=== PATIENT | female | born 1965 | race Caucasian/White ===

== ENCOUNTER 2017-08-17 17:48 | Emergency (ER) | payer OTHER ==
[2017-08-17 17:57] VITALS: BP 150/78
--- NOTE | 2017-08-17 18:07 | UC ---
Respiratory Complaint HPI - HPI Summary HPI Summary: worsening harsh cough over past 7 days-- - History of Current Complaint Chief Complaint: UCRespiratory Stated Complaint: ASTHMA Time Seen by Provider: 08/17/17 18:01 Hx Obtained From: Patient Hx Last Menstrual Period: 07/22/17 ?: No Onset/Duration: Sudden Onset, Lasting Weeks - 1, Still Present Timing: Constant Severity Initially: Mild Severity Currently: Moderate Character: Cough: Productive Aggravating Factors: Exertion, Deep Breaths, Recumbent Position Alleviating Factors: Bronchodilator, Other - began symbacort-this week when sx started with out effect Associated Signs And Symptoms: Positive: URI - Allergies/Home Medications Allergies/Adverse Reactions: Allergies Allergy/AdvReac Type Severity Reaction Status Date / Time No Known Allergies Allergy Verified 08/17/17 17:57 PMH/Surg Hx/FS Hx/Imm Hx Previously Healthy: No Respiratory History: Asthma - Surgical History Surgical History: Yes Surgery Procedure, Year, and Place: Tonsillectomy, C Section x2. - Family History Known Family History: Positive: Unknown Family History: PT ADOPTED - UNKNOWN FAM HX - Social History Occupation: Employed Full-time Lives: With Family Alcohol Use: Occasionally Substance Use Type: None Smoking Status (MU): Former Smoker Have You Smoked in the Last Year: No - Immunization History Most Recent Influenza Vaccination: fall Most Recent Tetanus Shot: utd Review of Systems Constitutional: Negative Skin: Negative Eyes: Negative ENT: Sinus Congestion Respiratory: Cough Cardiovascular: Negative Gastrointestinal: Negative Genitourinary: Negative Motor: Negative Neurovascular: Negative Musculoskeletal: Negative Neurological: Negative Psychological: Negative Is Patient Immunocompromised?: No All Other Systems Reviewed And Are Negative: Yes Physical Exam Triage Information Reviewed: Yes Appearance: No Pain Distress, Well-Nourished, Ill-Appearing - mild Vital Signs: Initial Vital Signs Temp 99.1 F 08/17/17 17:54 Pulse 90 08/17/17 17:54 Resp 18 08/17/17 17:54 BP 150/78 08/17/17 17:54 Pulse Ox 99 08/17/17 17:54 Vital Signs Reviewed: Yes Eye Exam: Normal Eyes: Positive: Conjunctiva Clear ENT Exam: Normal ENT: Positive: Normal ENT inspection, Hearing grossly normal, Pharynx normal, Nasal congestion, TMs normal, Uvula midline. Negative: Nasal drainage, Trismus , Muffled voice, Hoarse voice, Sinus tenderness Dental Exam: Normal Neck exam: Normal Neck: Positive: Supple, Nontender Respiratory Exam: Normal Respiratory: Positive: Chest non-tender, Normal breath sounds, No respiratory distress, No accessory muscle use, Wheezing Cardiovascular Exam: Normal Cardiovascular: Positive: RRR, No Murmur, Pulses Normal, Brisk Capillary Refill Musculoskeletal Exam: Normal Musculoskeletal: Positive: Strength Intact, ROM Intact, No Edema Neurological Exam: Normal Neurological: Positive: Alert, Muscle Tone Normal Psychological Exam: Normal Skin Exam: Normal UC Diagnostic Evaluation - Laboratory O2 Sat by Pulse Oximetry: 99 Respiratory Course/Dx - Course Course Of Treatment: continue Symbicort, and xeopenex, add prednisone and robitussin with Codiene follow with Dr. Garner - Differential Dx/Diagnosis Provider Diagnoses: Bronchospams, elevated Blood Pressure without dx of HTN Discharge - Discharge Plan Condition: Stable Disposition: HOME Prescriptions: Guaifenesin-Codeine [Cheratussin AC] 5 - 10 syp PO Q6H PRN #120 ml MDD 40ml PRN Reason: Cough predniSONE TAB* [Deltasone TAB*] 20 mg PO DAILY #15 tab Patient Education Materials: Hypertension (ED), Bronchospasm (ED) Referrals: Brenda Garner MD [Primary Care Provider] - 1 Week
== END 2017-08-17 18:23 | disposition home or self-care (01) ==
LOC: UCEAST 17:48
DX: J45.909 Unspecified asthma, uncomplicated (principal); R03.0 Elevated blood-pressure reading, without diagnosis of hypertension
CPT/HCPCS: 99212; G0463

== ENCOUNTER 2018-04-19 10:09 | Emergency (ER) | payer OTHER ==
[2018-04-19 10:47] VITALS: BP 145/92
--- NOTE | 2018-04-19 10:56 | ED ---
Throat Pain/Nasal Congestion - HPI Summary HPI Summary: 52-year-old female presents with sore throat and ear pain for the past 2 weeks. She states her daughter was diagnosis strep yesterday. She states she had a fever 2 days ago. has SOB and cough at baseline as has history of asthma. She states she has not been using her inhaler more frequently. She denies any chest pain. no abdominal pain. Denies any nausea or vomiting. - History of Current Complaint Chief Complaint: UCGeneralIllness Time Seen by Provider: 04/19/18 10:47 - Allergies/Home Medications Allergies/Adverse Reactions: Allergies Allergy/AdvReac Type Severity Reaction Status Date / Time No Known Allergies Allergy Verified 04/19/18 10:39 PMH/Surg Hx/FS Hx/Imm Hx Endocrine/Hematology History: Denies: Hx Diabetes, Hx Thyroid Disease Cardiovascular History: Denies: Hx Congestive Heart Failure, Hx Hypertension, Hx Pacemaker/ICD, Other Cardiovascular Problems/Disorders Respiratory History: Reports: Hx Asthma Denies: Hx Chronic Obstructive Pulmonary Disease (COPD), Other Respiratory Problems/Disorders GI History: Denies: Hx Ulcer - Cancer History Hx Chemotherapy: No Hx Radiation Therapy: No - Surgical History Surgery Procedure, Year, and Place: Tonsillectomy, C Section x2. - Immunization History Date of Tetanus Vaccine: UTD Infectious Disease History: No Infectious Disease History: Denies: Hx Hepatitis, Hx Human Immunodeficiency Virus (HIV), History Other Infectious Disease, Traveled Outside the in Last 30 Days - Family History Known Family History: Positive: Unknown Family History: PT ADOPTED - UNKNOWN FAM HX - Social History Alcohol Use: Occasionally Hx Substance Use: No Substance Use Type: Reports: None Hx Tobacco Use: No Smoking Status (MU): Former Smoker Have You Smoked in the Last Year: No Review of Systems Positive: Fever Positive: Sore Throat, Ear Ache Negative: Chest Pain Positive: Shortness Of Breath - at baseline, Cough - at baseline All Other Systems Reviewed And Are Negative: Yes Physical Exam Triage Information Reviewed: Yes Vital Signs On Initial Exam: Initial Vitals Temp Pulse Resp BP Pulse Ox 98.5 F 93 18 145/92 98 04/19/18 10:41 04/19/18 10:41 04/19/18 10:41 04/19/18 10:41 04/19/18 10:41 Vital Signs Reviewed: Yes Appearance: Positive: Well-Appearing Skin: Positive: Warm, Dry Head/Face: Positive: Normal Head/Face Inspection Eyes: Positive: Normal, EOMI, YEYO, Conjunctiva Clear ENT: Positive: Pharyngeal erythema, Muffled voice, Uvula midline, Other - soft palate symmetric. Negative: Tonsillar swelling, Trismus Neck: Positive: Supple, Tenderness @ - cervical, Enlarged Nodes @ - cervical Respiratory/Lung Sounds: Positive: Breath Sounds Present, Wheezes Cardiovascular: Positive: Normal, RRR Abdomen Description: Positive: Nontender, Soft Bowel Sounds: Positive: Present Musculoskeletal: Positive: Normal Neurological: Positive: Normal Psychiatric: Positive: Normal Diagnostics - Vital Signs Vital Signs Temp Pulse Resp BP Pulse Ox 04/19/18 10:41 98.5 F 93 18 145/92 98 - Laboratory Lab Statement: Any lab studies that have been ordered have been reviewed, and results considered in the medical decision making process. EENT Course/Dx - Course Course Of Treatment: 52-year-old female presents with sore throat and ear pain for the past 2 weeks. She states her daughter was diagnosis strep yesterday. She states she had a fever 2 days ago. has SOB and cough at baseline as has history of asthma. She states she has not been using her inhaler more frequently. She denies any chest pain. no abdominal pain. Denies any nausea or vomiting. on exam pharynx erythematous. uvula midline, soft palate symmetric. lymphadenopathy present. patient declined nebulizer even though has wheezing. strept negative. will have try magic mouth wash and decadron for pain. will have folow up with primary about blood pressure as is elevated at this time. patient understand and agrees with plan. - Differential Diagnoses Differential Diagnoses: Pharyngitis, Sinusitis, Tonsilitis - Diagnoses Provider Diagnoses: Pharyngitis Discharge - Sign-Out/Discharge Documenting (check all that apply): Patient Departure - Discharge Plan Condition: Good Disposition: HOME Prescriptions: Dexamethasone TAB* [Decadron TAB*] 4 mg PO DAILY #5 tab Magic Mouth Was-MURIEL/MAAL/LIDO* 5 ml SWISH SPIT QID #100 ml Patient Education Materials: Pharyngitis (ED) Referrals: Brenda Garner MD [Primary Care Provider] - Additional Instructions: Magic mouthwash 5ml swish and spit can use 4x a day Take steroid once a day for 5 days Take Tylenol or ibuprofen for pain every 6 hours Can use cough drops or products such as cloraseptic spray Follow up with primary within 5 days Return to ED if develop fever does not respond to Tylenol or ibuprofen, inability to swallow, or any new or worsening symptoms - Billing Disposition and Condition Condition: GOOD Disposition: Home Attestation Statement User Type: Provider - I was available for consult. This patient was seen by the DIANA. The patient was not presented to, seen by, or examined by me. -Kenneth
== END 2018-04-19 11:23 | disposition home or self-care (01) ==
LOC: UCEAST 10:09
DX: J02.9 Acute pharyngitis, unspecified (principal); R50.9 Fever, unspecified; H92.09 Otalgia, unspecified ear; R05 Cough; R06.02 Shortness of breath
CPT/HCPCS: 87651; 99212; G0463

== ENCOUNTER 2018-12-04 17:48 | Emergency (ER) | payer OTHER ==
--- NOTE | 2018-12-04 18:06 | UC ---
Skin Complaint HPI - HPI Summary HPI Summary: 53 yo female presents with ?boil to left inner thigh for the last 3 days. She has not been applying any creams or bandaging the area. Pain is worse when touching or rubbing against her other leg when she walks. Denies fever or chills. - History of Current Complaint Time Seen by Provider: 12/04/18 18:06 Stated Complaint: SKIN COMPLAINT Hx Obtained From: Patient Hx Last Menstrual Period: 04/19/18 Onset/Duration: Gradual Onset Timing: Constant Onset Severity: Moderate Current Severity: Moderate Pain Intensity: 7 Pain Scale Used: 0-10 Numeric - Allergy/Home Medications Allergies/Adverse Reactions: Allergies Allergy/AdvReac Type Severity Reaction Status Date / Time No Known Allergies Allergy Verified 12/04/18 18:16 PMH/Surg Hx/FS Hx/Imm Hx Respiratory History: COPD, Asthma - Surgical History Surgical History: Yes Surgery Procedure, Year, and Place: Tonsillectomy, C Section x2. - Family History Known Family History: Positive: Unknown Family History: PT ADOPTED - UNKNOWN FAM HX - Social History Occupation: Employed Full-time Lives: With Family Alcohol Use: Occasionally Substance Use Type: None Smoking Status (MU): Former Smoker Have You Smoked in the Last Year: No - Immunization History Most Recent Influenza Vaccination: fall Most Recent Tetanus Shot: utd Review of Systems All Other Systems Reviewed And Are Negative: Yes Constitutional: Positive: Negative Skin: Positive: Other - ?Boil left inner thigh Respiratory: Positive: Negative Cardiovascular: Positive: Negative Neurovascular: Positive: Negative Neurological: Positive: Negative Psychological: Positive: Negative Physical Exam - Summary Physical Exam Summary: GENERAL: NAD. WDWN. No pain distress. SKIN: LEFT INNER THIGH: 1.5cm area of mild erythema and edema with 5mm scab at central most aspect. No induration, fluctuance, active drainage, or streaking. NECK: Supple. Nontender. No lymphadenopathy. CHEST: No accessory muscle use. Breathing comfortably and in no distress. CV: Pulses intact. Cap refill <2seconds NEURO: Alert. PSYCH: Age appropriate behavior. Triage Information Reviewed: Yes Vital Signs: Vital Signs: Temp Pulse Resp BP Pulse Ox 99.1 F 102 18 159/91 99 12/04/18 18:13 12/04/18 18:13 12/04/18 18:13 12/04/18 18:13 12/04/18 18:13 Vital Signs Reviewed: Yes Procedures - Procedure Summary Procedure Summary: The procedure was explained to the pt and all questions were answered. A time out was performed, witnessed, and signed. The area was cleansed with an alcohol pad. 2mL of 0.25% bupivacaine without epi was administered and good anesthetization was achieved. The area was bandaged with telfa. Pt tolerated procedure well. Course/Dx - Course Course Of Treatment: It appears that the pt did have an abscess here, but that this abscess opened and drained at some point. She is still having pain in the area, but I suspect this is due to constant irritation from rubbing together when she walks. For pain relief I injected the area with 2mL 0.25% bupivacaine. The area was dressed with telfa and tegaderm. Will start her with keflex and bactroban cream. - Diagnoses Provider Diagnosis: Abscess Discharge - Sign-Out/Discharge Documenting (check all that apply): Patient Departure All imaging exams completed and their final reports reviewed: No Studies - Discharge Plan Condition: Stable Disposition: HOME Prescriptions: Cephalexin CAP* [Keflex CAP*] 500 mg PO TID #21 cap Patient Education Materials: Abscess (ED) Referrals: Brenda Garner MD [Primary Care Provider] - Additional Instructions: If you develop a fever, shortness of breath, chest pain, new or worsening symptoms - please call your PCP or go to the ED. Your blood pressure was high at todays visit. Please see your primary provider within 4 weeks for recheck and re-evaluation. 1) Use the bactroban cream and keep the area covered until well healed - change the dressing once a day 2) Take your antibiotic - Billing Disposition and Condition Condition: STABLE Disposition: Home
[2018-12-04] MEDS ORDERED: Lidocaine 2% PF * 5 ML VIAL INJ ONE (18:10)
[2018-12-04 18:16] VITALS: BP 159/91
[2018-12-04] MEDS ORDERED: Bupivacaine 0.25% SDV PF* 10 ML VIAL INJ ONE (18:24)
[2018-12-04] MEDS ORDERED: Mupirocin 2% OINT* TUBE TOPICAL ONE (18:25)
== END 2018-12-04 18:50 | disposition home or self-care (01) ==
LOC: UCEAST 17:48
DX: L02.416 Cutaneous abscess of left lower limb (principal); J44.9 Chronic obstructive pulmonary disease, unspecified; Z87.891 Personal history of nicotine dependence
CPT/HCPCS: 96372; 99212; G0463; J3490

== ENCOUNTER 2019-06-02 12:52 | Emergency (ER) | payer OTHER ==
[2019-06-02 13:10] VITALS: BP 148/97
--- NOTE | 2019-06-02 14:04 | UC ---
Complaint Female HPI - HPI Summary HPI Summary: Patient is a 54yo female presenting with possible urinary tract infection. She says she went to her OBGYN about one month ago for vulvar irritation and was treated for a yeast infection. Since then she has noticed the vulvar irritation returning and this past week has been the worst. She tried vagisil with some relief. She also describes a sharp pain on her right lower pelvic area that last a few seconds each time she has an orgasm, but denies pain during the rest of intercourse. She notes frequency of urination. Denies burning with urination and blood in the urine. She denies any abnormal vaginal discharge or bleeding. Denies changes in BMs. Notes fatigue. Denies any significant weight loss or gain. Denies night sweats. Denies fever, chills, and flank pain. Denies any concern for STIs. Denies any possibility of . She states she had tubal ligation approximately 12 years ago. LMP was 05/08/19. Patient also notes a history of ovarian cysts that resolve on their own. Also notes that she is pre diabetic and taking metformin. - History Of Current Complaint Chief Complaint: UCGU Stated Complaint: URINARY ISSUE Time Seen by Provider: 06/02/19 13:02 Hx Obtained From: Patient Hx Last Menstrual Period: May 08 Onset/Duration: Gradual Onset, Lasting Weeks Timing: Constant Severity Initially: Mild Severity Currently: Moderate Pain Intensity: 6 Pain Scale Used: 0-10 Numeric - Allergies/Home Medications Allergies/Adverse Reactions: Allergies Allergy/AdvReac Type Severity Reaction Status Date / Time No Known Allergies Allergy Verified 06/02/19 13:10 Home Medications: Home Medications metFORMIN* [Glucophage 500 MG TAB *] 500 mg PO BID 06/02/19 [History Confirmed 06/02/19] PMH/Surg Hx/FS Hx/Imm Hx Endocrine History: Diabetes - pre diabetes Respiratory History: Asthma - Surgical History Surgical History: Yes Surgery Procedure, Year, and Place: Tonsillectomy, C Section x2. - Family History Known Family History: Positive: Unknown Family History: PT ADOPTED - UNKNOWN FAM HX - Social History Alcohol Use: Occasionally Substance Use Type: None Smoking Status (MU): Former Smoker Have You Smoked in the Last Year: No - Immunization History Most Recent Influenza Vaccination: fall Most Recent Tetanus Shot: utd Review of Systems All Other Systems Reviewed And Are Negative: Yes Constitutional: Positive: Fatigue. Negative: Fever, Chills Eyes: Positive: Negative ENT: Positive: Negative Respiratory: Positive: Negative Cardiovascular: Positive: Negative Gastrointestinal: Positive: Other - pelvic pressure. Negative: Vomiting, Diarrhea Genitourinary: Positive: Frequency, Urgency, Vaginal/Penile Tenderness. Negative: Dysuria, Hematuria, Vaginal/Penile Burning, Vaginal/Penile Itching, Vaginal/Penile Discharge, Vaginal/Penile Pain, Ulceration/Lesion, Abnormal Bleeding Neurological: Positive: Negative Physical Exam Triage Information Reviewed: Yes Appearance: Well-Appearing, No Pain Distress, Well-Nourished Vital Signs: Initial Vital Signs Temp 99.1 F 06/02/19 13:05 Pulse 100 06/02/19 13:05 Resp 16 06/02/19 13:05 BP 148/97 06/02/19 13:05 Pulse Ox 97 06/02/19 13:05 Vital Signs Reviewed: Yes Respiratory Exam: Normal Respiratory: Positive: Lungs clear, Normal breath sounds, No respiratory distress Cardiovascular Exam: Normal Cardiovascular: Positive: RRR Abdomen Description: Positive: Soft, Other: - mild diffuse tenderness to palpation of pelvic region.. Negative: CVA Tenderness (R), CVA Tenderness (L), Distended, Guarding Bowel Sounds: Positive: Present Complaint Female Dx - Course Course Of Treatment: Discussed with patient to take antibiotic as directed for treatment of possible UTI. Urine culture will be sent. She is to take diflucan for symptoms of yeast infection and follow up with her primary care doctor within the next week to discuss the glucose in your urine and recurrent yeast infections. She was also told to follow up with her OBGYN or with the referred OBGYN listed for further evaluation of her pelvic pain. She may take over the counter pain medications as directed for pain relief. Patient told to return or go to the emergency room if she experiences fever, chills, nausea, vomiting, or blood in urine. - Differential Dx/Diagnosis Provider Diagnosis: Urinary frequency, Pelvic pressure in female Discharge ED - Sign-Out/Discharge Documenting (check all that apply): Patient Departure All imaging exams completed and their final reports reviewed: No Studies - Discharge Plan Condition: Stable Disposition: HOME Prescriptions: Fluconazole 150 MG TAB* [Diflucan 150 MG TAB*] 150 mg PO ONCE #1 tablet Nitrofurantoin Monohyd/M-Cryst [Macrobid 100 mg Capsule] 100 mg PO BID #10 cap Patient Education Materials: Urinary Tract Infection in Women (ED) Referrals: Brenda Garner MD [Primary Care Provider] - As Soon As Possible Mark Brown MD [Medical Doctor] - Additional Instructions: As discussed, take antibiotic as directed for treatment of UTI. Urine culture will be sent. Take diflucan for symptoms of yeast infection. Follow up with your primary care doctor within the next week to discuss the glucose in your urine and recurrent yeast infections. Follow up with your OBGYN or with the referred OBGYN listed below for further evaluation of your pelvic pain. You may take over the counter pain medications as directed for pain relief. Please return or go to the emergency room if you experience fever, chills, nausea, vomiting, or blood in your urine. - Billing Disposition and Condition Condition: STABLE Disposition: Home
== END 2019-06-02 14:19 | disposition home or self-care (01) ==
LOC: UCEAST 12:52
DX: R10.2 Pelvic and perineal pain (principal); R35.0 Frequency of micturition; J45.909 Unspecified asthma, uncomplicated; Z87.891 Personal history of nicotine dependence
CPT/HCPCS: 81003; 87077; 87086; 87186; 99212; G0463

== ENCOUNTER 2019-10-19 14:33 | Emergency (ER) | payer OTHER ==
--- NOTE | 2019-10-19 15:04 | UC ---
HPI Febrile Illness - HPI Summary HPI Summary: Patient is a 54yo female presenting with fever, dry cough, and "extreme fatigue " since last night at 6pm. States fever was 103 max but has been taking motrin for fever relief. States she has asthma and her chest has felt tight. Denies using her albuterol inhaler or nebulizer at home because she has been too tired. Notes headache. Denies sore throat. Denies n/v. Notes decreased appetite but drinking fluids still. States she feels "absolutely awful" and has "no energy at all." - History of Current Complaint Chief Complaint: UCRespiratory Hx Obtained From: Patient Hx Last Menstrual Period: Pain Intensity: 8 Pain Scale Used: 0-10 Numeric - Allergy/Home Medications Allergies/Adverse Reactions: Allergies Allergy/AdvReac Type Severity Reaction Status Date / Time No Known Allergies Allergy Verified 06/02/19 13:10 Home Medications: Home Medications Ibuprofen TAB* [Motrin TAB* 400 MG] 400 mg PO Q6H PRN 10/19/19 [History Confirmed 10/19/19] PMH/Surg Hx/FS Hx/Imm Hx Respiratory History: Asthma - Surgical History Surgical History: Yes Surgery Procedure, Year, and Place: Tonsillectomy, C Section x2. - Family History Known Family History: Positive: Unknown Family History: PT ADOPTED - UNKNOWN FAM HX - Social History Alcohol Use: Occasionally Substance Use Type: None Smoking Status (MU): Former Smoker Have You Smoked in the Last Year: No - Immunization History Most Recent Influenza Vaccination: fall Most Recent Tetanus Shot: utd Review of Systems All Other Systems Reviewed And Are Negative: Yes Constitutional: Positive: Fever, Chills, Fatigue ENT: Negative: Sore Throat, Sinus Congestion Respiratory: Positive: Shortness Of Breath - sob/chest tightness, Cough - nonproductive Cardiovascular: Positive: Negative Gastrointestinal: Positive: Negative Musculoskeletal: Positive: Myalgia Neurological: Positive: Headache Physical Exam - Summary Physical Exam Summary: Vital Signs Reviewed: Yes A+Ox3, no respiratory distress, ill-appearing Eyes: Conjunctiva inflamed b/l ENT: Hearing grossly normal, TM x 2 clear, moist, uvula midline, no exudate, no erythema Neck: Positive: Supple Respiratory: Positive: No respiratory distress, No accessory muscle use + CTA throughout no w/r Cardiovascular: tachycardia, regular rhythm, nl s1, s2 no m/r Musculoskeletal Exam: KLEIN x 4 without difficulty Neurological: Positive: Alert Psychological: Positive: age appropriate behavior Skin: Positive: +cheeks flushed, no rash, no ecchymosis Vital Signs: Initial Vital Signs Temp 101.2 F 10/19/19 14:36 Pulse 137 10/19/19 14:36 Resp 24 10/19/19 14:36 BP 172/105 10/19/19 14:36 Pulse Ox 99 10/19/19 14:36 Lab Results 10/19/19 10/19/19 Range/Units 15:17 16:02 Influenza A (Rapid) Negative (Negative) Influenza B (Rapid) Negative (Negative) Group A Strep Rapid Negative (Negative) Vital Signs (72 hours) 10/19/19 10/19/19 14:36 16:32 Temperature 101.2 F 101.5 F Pulse Rate 137 122 Respiratory 24 20 Rate Blood Pressure 172/105 129/72 (mmHg) O2 Sat by Pulse 99 95 Oximetry Laboratory Tests 10/19/19 10/19/19 10/19/19 15:17 16:02 16:50 POC Urine Color Light yellow POC Urine Clarity Clear POC Urine pH 6.0 POC Ur Specif [place] <= 1.005 L POC Urine Protein Negative POC Ur Glucose (UA) Negative POC Urine Ketones Negative POC Urine Blood Trace-intact POC Urine Nitrite Negative POC Urine Bilirubin Negative POC Urine Urobilinogen 0.2 POC U Leukocyte Esteras Negative Influenza A (Rapid) Negative Influenza B (Rapid) Negative Group A Strep Rapid Negative Diagnostics - Radiology chest Radiology Interpretation Completed By: Radiologist Summary of Radiographic Findings: FINDINGS: The lungs are clear. There is no pleural effusion. The cardiomediastinal silhouette is within normal limits. The upper abdominal contents are normal. Osseous structures are unremarkable. IMPRESSION: NO EVIDENCE FOR ACTIVE CARDIOPULMONARY DISEASE. Course/Dx - Course Course Of Treatment: Patient presenting with fever, chest tightness, dry cough, "extreme fatigue" since last night at 1800. States max fever 103.7. VS on arrival T 101.2, HR 137 , RR 24 BP 172/105, and O2 sat 99%. Patient took ibuprofen for fever before arriving so I gave tylenol here. PE findings WNL. CXR normal. Notes relief of chest tightness after duoneb treatment. Denies feeling better overall. Rapid flu and strep negative. UA +trace blood. Discussed with patient going to the hospital vs trial of IV fluids. Patient agreed to IV fluids. After fluids, patient VS improved to T 98.8, HR 108, RR 18, BP 165/76, but patient continues to note not feeling any better overall. Continues to note headache and dizziness not improving and "terrible fatigue." I recommended to her that she go to the emergency room via ambulance for further evaluation including lab work. Patient states she is "fine to drive herself" and that she "does not want an ambulance for a simple viral illness." She also states that she "isn't actually dizzy, just has a headache." She declined transfer via ambulance twice , despite reviewing risks of driving herself. I instructed the patient to drum puller and call 911 at any time if she experiences new or worsening symptoms. Patient voiced understanding and stated she will drive herself straight to [facility] upon leaving the urgent care. Patient stable and in no distress upon departure. Discussed this patient with Dr. Sandhu who also agreed with plan. - Diagnoses Provider Diagnosis: Fever, Malaise and fatigue, Tachycardia Discharge ED - Sign-Out/Discharge Documenting (check all that apply): Patient Departure All imaging exams completed and their final reports reviewed: Yes - Discharge Plan Condition: Stable Disposition: HOME-RECOMMEND TO ED Patient Education Materials: Viral Syndrome (ED) Additional Instructions: The provider that evaluated you today thinks that you need additional testing that can be completed in the emergency department. It is recommended that you go directly to emergency department for further evaluation. This evaluation included blood work or imaging. This testing will be directed and decided by the provider that evaluates you at the emergency department. If pain becomes worse, you feel lightheaded, you have uncontrolled vomiting, or you have any other concerns while you are being driven to emergency department as recommended to pullover and contact 911. - Billing Disposition and Condition Condition: STABLE Disposition: Home-Recommend to ED
[2019-10-19] MEDS ORDERED: Acetaminophen TAB* 325 MG PO ONE (15:09)
[2019-10-19] MEDS ORDERED: Albuterol 2.5 MG/3 ML NEB.SOL* (0.083%) INH ONE (15:09)
[2019-10-19] MEDS ORDERED: Albuterol/Ipratropium NEB.SOL* Albuterol 2.5 MG/Ipratropium 0.5 MG 3 ML INH ONE (15:16)
[2019-10-19 15:29] LABS: Influenza A Molecular Negative (Negative); Influenza B Molecular Negative (Negative)
[2019-10-19] MEDS ORDERED: NS 0.9% 1000 ML** 1,000 ML IV ONE (16:41)
[2019-10-19 17:53] VITALS: BP 165/76
== END 2019-10-19 18:00 | disposition home health service (06) ==
LOC: UCEAST 14:33
DX: R53.83 Other fatigue (principal); R53.81 Other malaise; R00.0 Tachycardia, unspecified; R50.9 Fever, unspecified; R05 Cough; H57.89 Other specified disorders of eye and adnexa; Z87.891 Personal history of nicotine dependence
CPT/HCPCS: 71046; 81003; 87651; 96360; 99213; A9270-GY; G0463